=== PATIENT | female | born 1975 | race Caucasian/White ===

== ENCOUNTER → 2016-05-12 | Outpatient (CLI) | payer BC ==
[~2016-05-12] MED LIST: ACCUNEB 0.0.63 MG/3 INH; ADIPEX37.5 MG PO; ALBUTEROL0.09 MG/A2 INH; ANAPROX DS550 MG PO; ANTIBIOTIC PO; ANTIVERT/2525 M1 PO; ANTIVERT25 MG; ANTIVERT25 MG PO; APAP/HYDROCODON1 T46 PO; BACTRIM DS 8001 TAB PO; BENTYL10 MG PO; CLARITIN10 MG PO; DAYPRO600 M1 PO; DOXYCYCLINE100 M2 PO; DOXYCYCLINE100 M3 PO; FIORICET 325 MG1 TAB PO; FLEXERIL10 MG PO; HYCODAN/HYDROMET5 ML PO; HYDROCODONE BIT1 T11 PO; IBU-8800 MG PO; KENALOG0.5% TP; LEVOFLOXACIN500 MG PO; LEVOTHYROXIN0.125 MG PO; MECLIZINE HCL25 M1 PO; MOTRIN CHI100 MG/51 PO; MOTRIN800 MG PO; Motrin,Rufen800 MG PO; NORCO 325 MG-51 TAB PO; PERCOCET 325 MG1 TA2 PO; PERCOCET 325 MG1 TAB PO; PHENERGAN W/ DE30 ML PO; PHENERGAN25 M1 PO; PREDNICOT10 MG PO; PREVACID30 M1 PO; PROVENTIL0.09 MG/A1 INH; PROVENTIL0.09 MG/AC IH; REGLAN10 MG PO; REGLAN5 MG PO; RELPAX20 MG; ROBAXIN750 MG PO; SYMBICORT1 AE1 IH; SYNTHROID0.125 MG PO; TYLENOL W/ CODEI5 ML PO; URIBEL CAPSULE1 EACH PO; VICODIN ES 7501 TAB; VISTARIL25 M1 PO; VITAMIN D50000 I2 PO; ZANTAC 300300 MG PO; ZITHROMAX Z PA250 MG PO; ZOFRAN4 MG PO; ZYRTEC10 MG PO; Zofran4 MG PO
[2016-05-12 13:27] LABS: BASO # 0.1 10*3/uL (0.0-0.1); BASO % 0.8 % (0.0-1.0); EOS % 0.5 % (1.0-4.0); HEMATOCRIT 44.5 % (37.0-47.0); HEMOGLOBIN 15.2 g/dl (12.0-16.0); LYMPH # 2.2 10*3/uL (1.3-4.4); LYMPH % 36.6 % (27.0-41.0); MEAN CELL VOLUME 85.2 fl (81.0-99.0); MEAN CORPUSCULAR HGB 29.1 pg (27.0-31.0); MEAN CORPUSCULAR HGB CONC 34.2 g/dl (33.0-37.0); MEAN PLATELET VOLUME 11.2 fl (9.6-12.3); MONO # 0.4 10*3/uL (0.1-1.0); NEUT # 3.3 10*3/uL (2.3-7.9); NEUT % 54.8 % (47.0-73.0); PLATELET COUNT AUTOMATED 339 10*3/uL (130-400); RED BLOOD COUNT 5.22 10*6/uL (4.10-5.10); RED CELL DISTRI WIDTH 13.2 % (0-14.5); WHITE BLOOD COUNT 6.1 10*3/uL (4.8-10.8)
[2016-05-12 13:34] LABS: BILIRUBIN NEGATIVE (NEGATIVE); BLOOD NEGATIVE (NEGATIVE); CLARITY SL CLOUDY (CLEAR); COLOR YELLOW (YELLOW); GLUCOSE NEGATIVE (NEGATIVE); KETONE NEGATIVE (NEGATIVE); LEUKO ESTERASE NEGATIVE (NEGATIVE); NITRITE NEGATIVE (NEGATIVE); PH 7.5 (5.0-9.0); PROTEIN NEGATIVE (NEGATIVE); UROBILINOGEN 0.2 E.U./dl (0.2-1.0)
[2016-05-12 14:04] LABS: ALBUMIN 3.7 gm/dl (3.1-4.5); ALKALINE PHOSPHATASE 151 U/L (45-117); BILIRUBIN, TOTAL 0.3 mg/dl (0.2-1.0); BUN 7 mg/dl (7-24); CARBON DIOXIDE 30 mmol/L (21-32); CHLORIDE 106 mmol/L (98-107); EST GLOM FILT AFRICAN AMERICAN > 60 ml/min; GLUCOSE 86 mg/dL (65-99); POTASSIUM 3.6 mmol/L (3.5-5.1); SGOT/AST 17 IU/L (3-35); SGPT/ALT 34 U/L (12-78); SODIUM 142 mmol/L (136-145); TOTAL PROTEIN 7.5 gm/dL (6.4-8.2)
[2016-05-12 14:05] LABS: BACTERIA 1+; BILIRUBIN, DIRECT 0.1 mg/dL (0.0-0.2); EPITHELIAL CELLS 0-2; THYROID STIM HORMONE (HS) 0.268 uIU/ml (0.358-4.75); WBC 0-2 wbc/hpf (0-5)
[2016-05-13 08:23] LABS: COMPLEMENT C4 001834 41 mg/dL (14-44)
== END | disposition home or self-care (01) ==
LOC: LAB 12:55
PROVIDERS: Nurse Practitioner Family
DX: C73 Malignant neoplasm of thyroid gland (principal); E89.0 Postprocedural hypothyroidism; M35.9 Systemic involvement of connective tissue, unspecified; R74.8 Abnormal levels of other serum enzymes

== ENCOUNTER → 2016-05-24 | Outpatient (CLI) | payer BC ==
[2016-05-25 04:07] LABS: ALKALINE PHOSPHATASE, SERUM 119 IU/L (39-117)
[2016-05-27 15:08] LABS: BONE FRACTION 47 % (14-68); INTESTINAL FRACTION 1 % (0-18); LIVER FRACTION 52 % (18-85)
== END | disposition home or self-care (01) ==
LOC: LAB 05-14 17:51
PROVIDERS: Nurse Practitioner Family
DX: J18.9 Pneumonia, unspecified organism (principal); R74.8 Abnormal levels of other serum enzymes

== ENCOUNTER → 2016-12-26 | Outpatient (CLI) | payer BC | END | disposition home or self-care (01) | LOC: LAB 13:05 | DX: C73 Malignant neoplasm of thyroid gland (principal); E89.0 Postprocedural hypothyroidism ==

== ENCOUNTER 2017-01-26 15:03 | Emergency (ER) | payer BC ==
[~2017-01-26] VITALS: Ht 157.4 cm; Wt 88.5 kg
[2017-01-26 15:27] VITALS: BP 120/80
[2017-01-26] MEDS ORDERED: ZITHROMAX250 MG PO (16:16)
[2017-01-26] MEDS ORDERED: PROAIR HFA8.5 GM INH (16:17)
[2017-01-26] MEDS ORDERED: MEDROL DOSEPAK4 MG PO (16:17)
== END 2017-01-26 16:22 | disposition home or self-care (01) ==
LOC: ED 15:03
DX: J40 Bronchitis, not specified as acute or chronic (principal); Z88.0 Allergy status to penicillin

== ENCOUNTER → 2017-05-26 | Outpatient (CLI) | payer BC ==
[~2017-05-26] MED LIST changes: +MEDROL DOSEPAK4 MG PO; +PROAIR HFA8.5 GM INH; +ZITHROMAX250 MG PO
== END | disposition home or self-care (01) ==
LOC: RAD 15:44
DX: J06.9 Acute upper respiratory infection, unspecified (principal); R05 Cough; R09.89 Other specified symptoms and signs involving the circulatory and respiratory systems; R50.9 Fever, unspecified

== ENCOUNTER → 2017-06-17 | Outpatient (CLI) | payer BC | END | disposition home or self-care (01) | LOC: US 14:53 | DX: C73 Malignant neoplasm of thyroid gland (principal); E89.0 Postprocedural hypothyroidism ==

== ENCOUNTER → 2017-08-04 | Outpatient (CLI) | payer BC | END | disposition home or self-care (01) | LOC: US 14:30 | DX: M79.605 Pain in left leg (principal) ==

== ENCOUNTER → 2018-05-25 | Outpatient (CLI) | payer BC ==
[2018-05-25 17:04] LABS: BASO # 0.1 10*3/uL (0.0-0.1); BASO % 0.7 % (0.0-1.0); EOS # 0.1 10*3/uL (0.0-0.4); EOS % 0.6 % (1.0-4.0); HEMATOCRIT 45.8 % (37.0-47.0); HEMOGLOBIN 15.4 g/dl (12.0-16.0); LYMPH # 2.5 10*3/uL (1.3-4.4); LYMPH % 30.6 % (27.0-41.0); MEAN CELL VOLUME 85.9 fl (81.0-99.0); MEAN CORPUSCULAR HGB 28.9 pg (27.0-31.0); MEAN CORPUSCULAR HGB CONC 33.6 g/dl (33.0-37.0); MONO # 0.5 10*3/uL (0.1-1.0); MONO % 5.7 % (3.0-9.0); NEUT % 62.2 % (47.0-73.0); PLATELET COUNT AUTOMATED 329 10*3/uL (130-400); RED BLOOD COUNT 5.33 10*6/uL (4.10-5.10); RED CELL DISTRI WIDTH 13.1 % (0-14.5); WHITE BLOOD COUNT 8.1 10*3/uL (4.8-10.8)
[2018-05-25 17:25] LABS: ALBUMIN 3.8 gm/dl (3.1-4.5); ALKALINE PHOSPHATASE 110 U/L (45-117); BUN 14 mg/dl (7-24); CHLORIDE 105 mmol/L (98-107); CREATININE 0.84 mg/dL (0.55-1.02); POTASSIUM 3.8 mmol/L (3.5-5.1); SGOT/AST 16 IU/L (3-35); SGPT/ALT 23 U/L (12-78); SODIUM 140 mmol/L (136-145); TOTAL PROTEIN 8.1 gm/dL (6.4-8.2)
== END | disposition home or self-care (01) ==
LOC: LAB 16:43
PROVIDERS: Internal Medicine Gastroenterology
DX: K74.5 Biliary cirrhosis, unspecified (principal)

== ENCOUNTER → 2018-09-07 | Outpatient (CLI) | payer BC | END | disposition home or self-care (01) | LOC: RAD 17:28 | DX: J18.9 Pneumonia, unspecified organism (principal) ==

== ENCOUNTER → 2018-09-14 | Outpatient (CLI) | payer BC | END | disposition home or self-care (01) | LOC: MAMMO 09-01 07:20 | DX: Z12.31 Encounter for screening mammogram for malignant neoplasm of breast (principal) ==

== ENCOUNTER 2019-03-07 16:49 | Inpatient (IN) | payer BC ==
[~2019-03-07] VITALS: Ht 157.5 cm; Wt 96.2 kg
--- NOTE | ~2019-03-07 | CON ---
[place], [place] REPORT OF CONSULTATION NAME: NICOLE DENNIS UNIT #: [id number] ROOM: 503 DOCTOR: WES LEGER MD BIRTHDATE: [birth year] DOS: 03/09/2019 GASTROENDOSCOPIC REPORT HISTORY OF PRESENT ILLNESS: A 43-year-old patient was presented with a chief complaint of abdominal pain, epigastric pain, and lower abdomen pain. CT scan of the abdomen and pelvis was obtained and nonobstructive bilateral renal calculi was seen. Small amount of density in the anus was noticed. Interval cholecystectomy was seen. Gastritis was suspected. Hiatal hernia noticed. CBC differential, H and H 13 and 42. Comprehensive metabolic panel: GFR greater than 60. Electrolytes, labs and records were noticed. PAST MEDICAL HISTORY: Associated with connective tissue disease, cholelithiasis, cephalalgia obesity, primary biliary cirrhosis, and nonalcoholic fatty liver. PAST SURGICAL HISTORY: , podiatry, cholecystectomy, and hand operation. SOCIAL HISTORY: Nonsmoker, social alcohol consumer. FAMILY HISTORY: Noncontributory. ALLERGIES: TO TAPE, PENICILLIN, AND REGLAN. MEDICATIONS: List has been reviewed. REVIEW OF SYSTEMS: HEENT: Denies double vision or blurred vision. RESPIRATORY: Denies shortness of breath. CARDIOVASCULAR: Denies chest pain. DIGESTIVE SYSTEM: Abdominal pain. PHYSICAL EXAMINATION: VITAL SIGNS: Stable. HEENT: Benign. NECK: Supple, no thyromegaly, no cervical lymphadenopathy. CHEST: Symmetric anatomy, equal expansion. No wheeze, no rhonchi. HEART: Normal sinus rhythm, no gallop, no murmur. ABDOMEN: Obese, soft. No hepato-organomegaly. Bowel sounds present. EXTREMITIES: No cyanosis, no pedal edema. NEUROLOGIC: Alert, oriented to time, place, and person. IMPRESSION: Abdominal pain, undergoing investigation. Other issues of primary biliary cirrhosis all recognized. Mixed connective tissue disease recognized. PLAN AND DISCUSSION: At the present time EGD and colonoscopy. [place], [place] REPORT OF CONSULTATION NAME: NICOLE DENNIS UNIT #: [id number] ROOM: 503 DOCTOR: WES LEGER MD BIRTHDATE: [birth year] WES LEGER MD CM:CONSTR:REPORT OF CONSULTATION 1650 03/09/19 2241 interface
--- NOTE | ~2019-03-07 | POSTOPNOTE ---
[place], [place] POSTOPERATIVE PROGRESS NOTE NAME: NIOCLE DENNIS UNIT #: [id number] ROOM: [facility] DOCTOR: WES LEGER MD BIRTHDATE: [birth year] DATE: 03/09/19 GI NOTE PREOPERATIVE DIAGNOSIS: EPIGASTRIC ABDOMINAL PAIN, NONSPECIFIC, NONOBSTRUCTIVE BILATERAL RENAL CALCULI, DIVERTICULOSIS WITHOUT DIVERTICULITIS, GASTRITIS HIATAL HERNIA POSTOP UPPER GI PROC/FINDINGS: UPPER GI PROCEDURE/SURGERY: ESOPHAGASTRODUODENOSCOPY, GASTRIC BIOPSY UPPER GI FINDINGS: GASTRITIS, VERY SMALL HIATAL HERNIA POSTOP LOWER GI PROC/FINDINGS: LOWER GI PROCEDURE/SURGERY: COLONOSCOPY, PLUS BIOPSY LOWER GI FINDINGS: MILD DIVERTICULOSIS, RETAINED LIQUID STOOL WES LEGER MD CM:POSTOPN 1523 1523 WES LEGER MD 03/10/19 1526 SOBIA DARDEN MIS.R
--- NOTE | ~2019-03-07 | O ---
[place], [place] OPERATIVE NOTE NAME: NICOLE DENNIS UNIT #: [id number] ROOM: 503 DOCTOR: WES LEGER MD BIRTHDATE: [birth year] DOS: 03/09/2019 GASTROENDOSCOPIC REPORT INDICATIONS: The patient has presented with epigastric abdominal pain, nonspecific. Labs and records have been reviewed her CT scan of the abdomen and pelvis was reviewed. She is having nonobstructive bilateral renal calculi and she has some diverticulosis without diverticulitis. No acute appendicitis, hepatic steatosis, gastritis with small hiatal hernia on CT scan. PROCEDURE: Today's procedure part of investigation is panendoscopy and colonoscopy. PREMEDICATION: Propofol. SCOPE: Olympus forward-viewing gastroscope Q10 video. REPORT: After putting the patient in left lateral position and application of lubricant to the scope, the scope was introduced. Thereafter, under direct visualization, advanced through the length of esophagus without difficulty. Diffuse gastritis was noticed very small hiatal hernia was seen. Duodenal bulb, second and third part within normal limit. Antral biopsy obtained. GI reflection of the scope reveals cardia to be benign. Air was suctioned out. The patient was extubated, tolerated the procedure well. IMPRESSION: Gastritis, very small hiatal hernia. PLAN AND DISCUSSION: Protonix 40 mg day. Furthermore, we are going to proceed with colonoscopy. PROCEDURE #2 INDICATIONS: The patient is a 43-year-old patient who has presented with nonspecific abdominal pain, undergoing investigation. PROCEDURE: Today's procedure part of investigation is colonoscopy plus biopsy. PREMEDICATION: Propofol. SCOPE: Olympus forward-viewing colonoscope 10L video. DESCRIPTION OF PROCEDURE: After putting the patient in left lateral position and application of lubricant to the scope, the scope was introduced. Thereafter, under direct visualization, advanced through the length of colon without difficulty. Base of the cecum explored, appendiceal orifice identified. Residual liquid stool throughout the entire length of colon was encountered. Mild diverticulosis seen and random biopsy of colon was obtained to assure there is no subcutaneous pathology. The patient extubated, tolerated the procedure well. [place], [place] OPERATIVE NOTE NAME: NICOLE DENNIS UNIT #: [id number] ROOM: 503 DOCTOR: WES LEGER MD BIRTHDATE: [birth year] IMPRESSION: A mild diverticulosis, retained liquid stool. PLAN AND DISCUSSION: We are noticing that she has had a spike of AST and ALT of 200 and 300+ respectively with alkaline phosphatase of 137. Bilirubin has been normal, however. I remain concerned as far as the source of spiked LFTs. Patient 10 years ago had cholecystectomy. I am going to follow up on LFTs again tomorrow with amylase, lipase to assure there is no evidence of choledocholithiasis and work in progress. We understand that she has a history of primary biliary cirrhosis. However, the workup is going to continue, also she has renal calculi. WES LEGER MD CM:ARIANNAECORD:OPERATIVE NOTE 1719 T: WES LEGER MD 03/16/19 0916 SOBIA DARDEN MIS.LLR
[~2019-03-07 16:49] MED LIST changes: -LEVOTHYROXIN0.125 MG PO; +LEVOTHYROXINE100 MC1 PO
[2019-03-07 16:52] VITALS: BP 131/86
[2019-03-07 17:33] LABS: BILIRUBIN NEGATIVE (NEGATIVE); BLOOD 1+ (NEGATIVE); CLARITY CLOUDY (CLEAR); COLOR YELLOW (YELLOW); GLUCOSE NEGATIVE (NEGATIVE); KETONE NEGATIVE (NEGATIVE); LEUKO ESTERASE 1+ (NEGATIVE); NITRITE NEGATIVE (NEGATIVE); UROBILINOGEN 0.2 E.U./dl (0.2-1.0)
[2019-03-07 17:41] LABS: WBC TNTC wbc/hpf (0-5)
[2019-03-07 17:42] LABS: BACTERIA 1+; EPITHELIAL CELLS 0-2
[2019-03-07 18:11] LABS: BASO # 0.1 10*3/uL (0.0-0.1); EOS # 0.2 10*3/uL (0.0-0.4); EOS % 2.2 % (1.0-4.0); HEMATOCRIT 42.2 % (37.0-47.0); HEMOGLOBIN 13.6 g/dl (12.0-16.0); LYMPH # 2.4 10*3/uL (1.3-4.4); LYMPH % 29.6 % (27.0-41.0); MEAN CELL VOLUME 88.5 fl (81.0-99.0); MEAN CORPUSCULAR HGB 28.5 pg (27.0-31.0); MEAN CORPUSCULAR HGB CONC 32.2 g/dl (33.0-37.0); MONO # 0.7 10*3/uL (0.1-1.0); MONO % 8.2 % (3.0-9.0); NEUT # 4.7 10*3/uL (2.3-7.9); NEUT % 58.6 % (47.0-73.0); PLATELET COUNT AUTOMATED 347 10*3/uL (130-400); RED BLOOD COUNT 4.77 10*6/uL (4.10-5.10); RED CELL DISTRI WIDTH 13.1 % (0-14.5); WHITE BLOOD COUNT 8.1 10*3/uL (4.8-10.8)
--- NOTE | 2019-03-07 18:24 | NUR ---
MORPHINE AND TORADOL EFFECTIVE FOR A BRIEF PERIOD. PT IS COMPLAINING OF PAIN AGAIN TO ABD.
--- NOTE | 2019-03-07 18:30 | NUR ---
PT IS COMPLAINING OF SEVERE LQU ABD PAIN (IT HAS MOVED FROM PELVIC AREA), PT IS FLOPPING AROUND IN BED, PANTING, SWEATING. A CLAUDIA NOTIFIED.
[2019-03-07 18:31] VITALS: BP 110/73
[2019-03-07 19:01] LABS: ALBUMIN 3.3 gm/dl (3.1-4.5); ALKALINE PHOSPHATASE 115 U/L (45-117); BUN 15 mg/dl (7-24); CHLORIDE 108 mmol/L (98-107); CREATININE 0.86 mg/dL (0.55-1.02); POTASSIUM 4.3 mmol/L (3.5-5.1); SGOT/AST 39 IU/L (3-35); SGPT/ALT 70 U/L (12-78); SODIUM 142 mmol/L (136-145); TOTAL PROTEIN 6.7 gm/dL (6.4-8.2)
--- NOTE | 2019-03-07 19:21 | NUR ---
PATIENT HAS LEFT THE FLOOR TO GO TO CT SCAN AT THIS TIME. PATIENT IS STABLE
--- NOTE | 2019-03-07 19:36 | NUR ---
PATIENT HAS RETURNED AT THIS TIME FROM CT SCAN. PATIENT GIVEN WARM BLANKET
[2019-03-07 23:00] VITALS: BP 123/81
--- NOTE | 2019-03-07 23:00 | NUR ---
Time: 2299 A 43 year old FEMALE admitted to 5E under services of DR. SANTIAGO PACHECO,YESENIA. Pt. arrived via bed from ER. Chief complaint: ABDOMINAL PAIN, DYSURIA. BRENNA ADAME
--- NOTE | 2019-03-07 23:53 | NUR ---
PATIENT ONLY ABLE TO STATE SOME MEDICATIONS. WILL CALL PHARMACY IN THE MORNING
[2019-03-07] MEDS ORDERED: VITAMIN D5000 UNIT PO (23:55)
[2019-03-07] MEDS ORDERED: OMEPRAZOLE40 MG PO (23:56)
[2019-03-07] MEDS ORDERED: MIXED AMPHETAMI30 MG PO (23:56)
[2019-03-07] MEDS ORDERED: VITAMIN E400 UNI2 PO (23:56)
[2019-03-07] MEDS ORDERED: Fioricet 325 MG1 TAB PO (23:58)
[2019-03-07] MEDS ORDERED: SUMATRIPTAN SU100 M1 PO (23:58)
[2019-03-08] VITALS: BP 123/81
--- NOTE | 2019-03-08 00:06 | NUR ---
MED REC REVIEWED WITH PATIENT, REVIEWED MEDICATIONS PATIENT WAS FOR SURE THAT SHE TOOK. STATED TO PATIENT WE WOULD HAVE TO CALL FOR THE REST OF THEM IN THE MORNING.
--- NOTE | 2019-03-08 05:58 | NUR ---
PRN ZOFRAN AND NORCO GIVEN FOR PT COMPLAINTS OF NAUSEA AND PAIN IN THE ABDOMEN RATING IT 6/10. CALL LIGHT WITHIN REACH, WILL MONITOR
[2019-03-08 06:48] LABS: BASO % 0.7 % (0.0-1.0); EOS # 0.1 10*3/uL (0.0-0.4); EOS % 1.5 % (1.0-4.0); HEMATOCRIT 40.1 % (37.0-47.0); LYMPH # 1.7 10*3/uL (1.3-4.4); LYMPH % 28.5 % (27.0-41.0); MEAN CELL VOLUME 88.5 fl (81.0-99.0); MEAN CORPUSCULAR HGB 28.7 pg (27.0-31.0); MEAN CORPUSCULAR HGB CONC 32.4 g/dl (33.0-37.0); MEAN PLATELET VOLUME 11.1 fl (9.6-12.3); MONO # 0.5 10*3/uL (0.1-1.0); MONO % 8.4 % (3.0-9.0); NEUT # 3.7 10*3/uL (2.3-7.9); NEUT % 60.4 % (47.0-73.0); PLATELET COUNT AUTOMATED 322 10*3/uL (130-400); RED BLOOD COUNT 4.53 10*6/uL (4.10-5.10); RED CELL DISTRI WIDTH 13.1 % (0-14.5); WHITE BLOOD COUNT 6.1 10*3/uL (4.8-10.8)
[2019-03-08 07:26] LABS: CHLORIDE 110 mmol/L (98-107); POTASSIUM 3.6 mmol/L (3.5-5.1); SODIUM 139 mmol/L (136-145)
[2019-03-08 07:38] LABS: ALKALINE PHOSPHATASE 133 U/L (45-117); BUN 10 mg/dl (7-24); CREATININE 0.64 mg/dL (0.55-1.02); PHOSPHOROUS 3.8 mg/dL (2.5-4.9); SGOT/AST 510 IU/L (3-35); SGPT/ALT 396 U/L (12-78); TOTAL PROTEIN 6.4 gm/dL (6.4-8.2)
[2019-03-08 08:00] VITALS: BP 109/72
[2019-03-08] MEDS ORDERED: URIBEL CAPSULE1 EACH PO (09:12)
[2019-03-08] MEDS ORDERED: CLARITIN10 MG PO (09:12)
[2019-03-08] MEDS ORDERED: VENT7GM INH (09:16)
--- NOTE | 2019-03-08 10:30 | NUR ---
Appeals Assistant in to talk to patient. Patient states lives at home with her and 2 daughters. There are 16 steps in the home. Physician: Dr. Martinez / Dr. Seth Vaca [facility]: [facility] Home health services: none Patient's level of ADLs: INDEPENDENT Patient has working utilities: yes DME: none Follow-up physician's appointment after d/c: she prefers to make her own follow up appt after discharge Does patient want to access PORTAL?: no Discharge plan discussed with patient. She lives at home with her and 2 daughters. She is independent in her ADLs and ambulation. Discussed home health care services and she denies any home needs at this time. When medically stable she will be discharged to home. Her daughter or her will provide transportation on discharge. ROCIO GREGORY
--- NOTE | 2019-03-08 11:55 | NUR ---
LEFT A MESSAGE ON DR. LEGER CELL PHONE OF CONSULT.
[2019-03-08 12:00] VITALS: BP 110/67
[2019-03-08 16:00] VITALS: BP 137/88
[2019-03-08 20:00] VITALS: BP 128/84
[2019-03-09] VITALS (7 sets, daily range): BP systolic 98–128; BP diastolic 63–87
[2019-03-09 09:26] LABS: BASO # 0.1 10*3/uL (0.0-0.1); BASO % 1.1 % (0.0-1.0); EOS # 0.2 10*3/uL (0.0-0.4); EOS % 2.7 % (1.0-4.0); HEMATOCRIT 40.7 % (37.0-47.0); HEMOGLOBIN 13.3 g/dl (12.0-16.0); LYMPH # 1.8 10*3/uL (1.3-4.4); LYMPH % 28.1 % (27.0-41.0); MEAN CELL VOLUME 89.1 fl (81.0-99.0); MEAN CORPUSCULAR HGB 29.1 pg (27.0-31.0); MEAN CORPUSCULAR HGB CONC 32.7 g/dl (33.0-37.0); MEAN PLATELET VOLUME 10.6 fl (9.6-12.3); MONO # 0.4 10*3/uL (0.1-1.0); MONO % 6.9 % (3.0-9.0); NEUT # 3.8 10*3/uL (2.3-7.9); NEUT % 60.6 % (47.0-73.0); PLATELET COUNT AUTOMATED 310 10*3/uL (130-400); RED BLOOD COUNT 4.57 10*6/uL (4.10-5.10); RED CELL DISTRI WIDTH 13.2 % (0-14.5); WHITE BLOOD COUNT 6.3 10*3/uL (4.8-10.8)
--- NOTE | 2019-03-09 09:30 | NUR ---
Colorer Hides And Skins in to see patient. No new needs or request at this time. She denies any home needs. When medically stable she will be discharged to home. Awaiting Dr. Heath consult for elevated liver enzymes. Positive UA. On Levaquin and Flagyl.
[2019-03-09 09:55] LABS: ALKALINE PHOSPHATASE 137 U/L (45-117); BUN 10 mg/dl (7-24); CHLORIDE 109 mmol/L (98-107); CREATININE 0.69 mg/dL (0.55-1.02); POTASSIUM 3.6 mmol/L (3.5-5.1); SGOT/AST 224 IU/L (3-35); SGPT/ALT 313 U/L (12-78); SODIUM 140 mmol/L (136-145); TOTAL PROTEIN 6.7 gm/dL (6.4-8.2)
--- NOTE | 2019-03-09 15:12 | NUR ---
PATIENT BEING TAKEN TO SURGERY.
--- NOTE | 2019-03-09 21:46 | NUR ---
MEDICATED WITH NORCO PER DRS ORDERS FOR COMPLAINTS OF PAIN TO THE LOWER ABDOMEN AND BACK AREA. RN WILL MONITOR FOR RELIEF
[2019-03-10] VITALS: BP 116/69
--- NOTE | 2019-03-10 05:26 | NUR ---
PATIENT STATES SHE DOES NOT CHECK HER BLOOD SUGARS AT HOME AND DOESNT TAKE ANY MEDICATIONS FOR IT AT HOME AND WAS CONCERNED FOR RATIONALE BEHIND DOING THEM HERE, RN INFORMED PATIENT OF REASON. AND PATIENT AGREED TO LET RN CHECK BLOOD SUGAR.
[2019-03-10 06:27] LABS: BASO # 0.1 10*3/uL (0.0-0.1); BASO % 0.8 % (0.0-1.0); EOS # 0.2 10*3/uL (0.0-0.4); HEMOGLOBIN 13.3 g/dl (12.0-16.0); LYMPH # 2.1 10*3/uL (1.3-4.4); MEAN CORPUSCULAR HGB 28.5 pg (27.0-31.0); MEAN CORPUSCULAR HGB CONC 32.4 g/dl (33.0-37.0); MEAN PLATELET VOLUME 10.8 fl (9.6-12.3); MONO # 0.5 10*3/uL (0.1-1.0); MONO % 8.9 % (3.0-9.0); NEUT # 3.1 10*3/uL (2.3-7.9); NEUT % 51.6 % (47.0-73.0); PLATELET COUNT AUTOMATED 321 10*3/uL (130-400); RED BLOOD COUNT 4.66 10*6/uL (4.10-5.10); RED CELL DISTRI WIDTH 13.1 % (0-14.5); WHITE BLOOD COUNT 6.1 10*3/uL (4.8-10.8)
[2019-03-10 06:35] LABS: ALBUMIN 2.9 gm/dl (3.1-4.5); ALKALINE PHOSPHATASE 135 U/L (45-117); BUN 8 mg/dl (7-24); CHLORIDE 107 mmol/L (98-107); CREATININE 0.85 mg/dL (0.55-1.02); POTASSIUM 3.3 mmol/L (3.5-5.1); SGOT/AST 95 IU/L (3-35); SGPT/ALT 234 U/L (12-78); SODIUM 140 mmol/L (136-145); TOTAL PROTEIN 6.5 gm/dL (6.4-8.2)
[2019-03-10 06:37] LABS: BILIRUBIN, DIRECT < 0.1 mg/dL (0.0-0.2)
[2019-03-10 07:08] LABS: HEPATITIS B SURFACE AG Negative (Negative); HEPATITIS C VIRUS ANTIBODY <0.1 s/co (0.0-0.9)
[2019-03-10 08:00] VITALS: BP 99/62
--- NOTE | 2019-03-10 10:00 | NUR ---
Freight Representative in to see patient. No new needs or request at this time. She denies any home needs. When medically stable she will be discharged to home. Discussed discharge planning with Dr. Vaca. Discussed colonoscopy yesterday by Dr. Heath showed diverticulosis. Plan is for patient to be discharged today if medically stable.
[2019-03-10] MEDS ORDERED: FLAGYL500 MG PO (13:40)
[2019-03-10] MEDS ORDERED: LEVAQUIN750 M1 PO (13:40)
--- NOTE | 2019-03-10 14:20 | NUR ---
Discharge instructions reviewed with patient/family. Patient receptive and verbalizes understanding. Follow-up care arranged. Written instructions given to patient/family. KORINA LITTLE
--- NOTE | 2019-03-10 14:36 | NUR ---
PT DISCHARGED AT THIS TIME WITH TO HOME.
== END 2019-03-10 14:36 | disposition home or self-care (01) | DRG 690 ==
LOC: ED 16:49 → 5E 20:41 → EDHOLD 20:41 → 5E 22:07
PROVIDERS: Emergency Medicine; Internal Medicine Gastroenterology; Physician Assistant; Student in an Organized Health Care Education/Training Program; ADMIT Internal Medicine
PROC: 0DB68ZX Excision of Stomach, Via Natural or Artificial Opening Endoscopic, Diagnostic (ICD-10-PCS; principal; 2019-03-09)
PROC: 0DBE8ZX Excision of Large Intestine, Via Natural or Artificial Opening Endoscopic, Diagnostic (ICD-10-PCS; principal; 2019-03-09)
DX: N30.01 Acute cystitis with hematuria (principal); K29.70 Gastritis, unspecified, without bleeding; N20.0 Calculus of kidney; R73.03 Prediabetes; K74.3 Primary biliary cirrhosis; K76.0 Fatty (change of) liver, not elsewhere classified; K44.9 Diaphragmatic hernia without obstruction or gangrene; M35.9 Systemic involvement of connective tissue, unspecified; K57.30 Diverticulosis of large intestine without perforation or abscess without bleeding; E66.9 Obesity, unspecified; K21.9 Gastro-esophageal reflux disease without esophagitis; R74.0 Nonspecific elevation of levels of transaminase and lactic acid dehydrogenase [LDH]; Z90.49 Acquired absence of other specified parts of digestive tract; Z90.710 Acquired absence of both cervix and uterus; Z98.891 History of uterine scar from previous surgery; Z98.51 Tubal ligation status; Z88.0 Allergy status to penicillin; Z88.8 Allergy status to other drugs, medicaments and biological substances; Z83.3 Family history of diabetes mellitus; Z85.850 Personal history of malignant neoplasm of thyroid; Z79.899 Other long term (current) drug therapy; Z68.38 Body mass index [BMI] 38.0-38.9, adult

== ENCOUNTER → 2019-04-05 | Outpatient (CLI) | payer BC ==
[~2019-04-05] MED LIST changes: +FLAGYL500 MG PO; +Fioricet 325 MG1 TAB PO; +LEVAQUIN750 M1 PO; +MIXED AMPHETAMI30 MG PO; +OMEPRAZOLE40 MG PO; +SUMATRIPTAN SU100 M1 PO; +VENT7GM INH; +VITAMIN D5000 UNIT PO; +VITAMIN E400 UNI2 PO
[2019-04-05 17:38] LABS: BUN 8 mg/dl (7-24); CHLORIDE 107 mmol/L (98-107); POTASSIUM 3.2 mmol/L (3.5-5.1); SODIUM 138 mmol/L (136-145)
== END | disposition home or self-care (01) ==
LOC: LAB 16:48
PROVIDERS: Family Medicine
DX: M35.9 Systemic involvement of connective tissue, unspecified (principal)

== ENCOUNTER → 2019-04-11 | Outpatient (CLI) | payer BC ==
[2019-04-11 09:16] LABS: BASO # 0.1 10*3/uL (0.0-0.1); BASO % 1.3 % (0.0-1.0); EOS # 0.1 10*3/uL (0.0-0.4); EOS % 1.8 % (1.0-4.0); HEMATOCRIT 44.3 % (37.0-47.0); HEMOGLOBIN 14.3 g/dl (12.0-16.0); LYMPH # 2.2 10*3/uL (1.3-4.4); LYMPH % 35.6 % (27.0-41.0); MEAN CELL VOLUME 88.1 fl (81.0-99.0); MEAN CORPUSCULAR HGB 28.4 pg (27.0-31.0); MEAN CORPUSCULAR HGB CONC 32.3 g/dl (33.0-37.0); MONO # 0.6 10*3/uL (0.1-1.0); MONO % 9.3 % (3.0-9.0); NEUT # 3.2 10*3/uL (2.3-7.9); NEUT % 51.7 % (47.0-73.0); PLATELET COUNT AUTOMATED 300 10*3/uL (130-400); RED BLOOD COUNT 5.03 10*6/uL (4.10-5.10); RED CELL DISTRI WIDTH 13.3 % (0-14.5); WHITE BLOOD COUNT 6.2 10*3/uL (4.8-10.8)
[2019-04-11 09:45] LABS: ALBUMIN 3.4 gm/dl (3.1-4.5); BUN 11 mg/dl (7-24); CHLORIDE 107 mmol/L (98-107); POTASSIUM 3.9 mmol/L (3.5-5.1); SODIUM 141 mmol/L (136-145)
[2019-04-11 09:56] LABS: ALKALINE PHOSPHATASE 106 U/L (45-117); CREATININE 0.82 mg/dL (0.55-1.02); FREE T4 0.97 ng/dl (0.76-1.46); SGOT/AST 36 IU/L (3-35); SGPT/ALT 40 U/L (12-78); TOTAL PROTEIN 7.2 gm/dL (6.4-8.2)
== END | disposition home or self-care (01) ==
LOC: LAB 08:49
PROVIDERS: Internal Medicine
DX: E03.9 Hypothyroidism, unspecified (principal); R74.8 Abnormal levels of other serum enzymes; M35.9 Systemic involvement of connective tissue, unspecified

== ENCOUNTER 2019-07-27 15:21 | Emergency (ER) | payer BC ==
[~2019-07-27] VITALS: Ht 157.4 cm; Wt 98.4 kg
[2019-07-27 15:28] VITALS: BP 117/73
[2019-07-27 17:34] LABS: BILIRUBIN NEGATIVE (NEGATIVE); BLOOD NEGATIVE (NEGATIVE); CLARITY CLEAR (CLEAR); COLOR YELLOW (YELLOW); GLUCOSE NEGATIVE (NEGATIVE); KETONE NEGATIVE (NEGATIVE); NITRITE NEGATIVE (NEGATIVE); PH 7.5 (5.0-9.0); UROBILINOGEN 0.2 E.U./dl (0.2-1.0)
[2019-07-27 17:35] LABS: LEUKO ESTERASE NEGATIVE (NEGATIVE)
[2019-07-27 17:41] LABS: BACTERIA TRACE; EPITHELIAL CELLS 0-2
[2019-07-27 18:31] LABS: BASO % 0.6 % (0.0-1.0); EOS % 0.1 % (1.0-4.0); HEMATOCRIT 44.5 % (37.0-47.0); HEMOGLOBIN 14.6 g/dl (12.0-16.0); LYMPH % 14.6 % (27.0-41.0); MEAN CELL VOLUME 85.7 fl (81.0-99.0); MEAN CORPUSCULAR HGB 28.1 pg (27.0-31.0); MEAN CORPUSCULAR HGB CONC 32.8 g/dl (33.0-37.0); MONO # 0.4 10*3/uL (0.1-1.0); MONO % 6.3 % (3.0-9.0); NEUT # 5.5 10*3/uL (2.3-7.9); NEUT % 78.3 % (47.0-73.0); PLATELET COUNT AUTOMATED 299 10*3/uL (130-400); RED BLOOD COUNT 5.19 10*6/uL (4.10-5.10); RED CELL DISTRI WIDTH 13.2 % (0-14.5)
[2019-07-27 18:48] LABS: ALBUMIN 3.2 gm/dl (3.1-4.5); ALKALINE PHOSPHATASE 100 U/L (45-117); BUN 10 mg/dl (7-24); CHLORIDE 108 mmol/L (98-107); CREATININE 0.85 mg/dL (0.55-1.02); LIPASE 141 U/L (73-393); POTASSIUM 3.7 mmol/L (3.5-5.1); SGOT/AST 25 IU/L (3-35); SGPT/ALT 32 U/L (12-78); SODIUM 139 mmol/L (136-145); TOTAL PROTEIN 6.7 gm/dL (6.4-8.2)
[2019-07-27] MEDS ORDERED: ZOFRAN4 MG PO (19:12)
== END 2019-07-27 19:14 | disposition home or self-care (01) ==
LOC: ED 15:21
PROVIDERS: Physician Assistant
DX: K52.9 Noninfective gastroenteritis and colitis, unspecified (principal); Z88.0 Allergy status to penicillin; Z88.8 Allergy status to other drugs, medicaments and biological substances; Z79.899 Other long term (current) drug therapy

== ENCOUNTER → 2019-10-27 | Outpatient (CLI) | payer BC ==
[2019-10-27 11:22] LABS: BASO # 0.1 10*3/uL (0.0-0.1); BASO % 1.2 % (0.0-1.0); EOS # 0.1 10*3/uL (0.0-0.4); EOS % 1.6 % (1.0-4.0); HEMATOCRIT 42.5 % (37.0-47.0); LYMPH # 1.7 10*3/uL (1.3-4.4); LYMPH % 30.4 % (27.0-41.0); MEAN CELL VOLUME 85.9 fl (81.0-99.0); MEAN CORPUSCULAR HGB 28.7 pg (27.0-31.0); MEAN CORPUSCULAR HGB CONC 33.4 g/dl (33.0-37.0); MEAN PLATELET VOLUME 10.8 fl (9.6-12.3); MONO # 0.4 10*3/uL (0.1-1.0); MONO % 7.6 % (3.0-9.0); NEUT # 3.4 10*3/uL (2.3-7.9); NEUT % 58.8 % (47.0-73.0); PLATELET COUNT AUTOMATED 290 10*3/uL (130-400); RED BLOOD COUNT 4.95 10*6/uL (4.10-5.10); WHITE BLOOD COUNT 5.7 10*3/uL (4.8-10.8)
[2019-10-27 11:48] LABS: ALBUMIN 3.6 gm/dl (3.1-4.5); ALKALINE PHOSPHATASE 96 U/L (45-117); BUN 12 mg/dl (7-24); CHLORIDE 111 mmol/L (98-107); CREATININE 0.74 mg/dL (0.55-1.02); IRON 70 ug/dL (50-170); POTASSIUM 3.7 mmol/L (3.5-5.1); SGOT/AST 15 IU/L (3-35); SGPT/ALT 27 U/L (12-78); SODIUM 142 mmol/L (136-145); TOTAL IRON BINDING CAPACITY 299 ug/dl (250-450); TOTAL PROTEIN 7.4 gm/dL (6.4-8.2)
[2019-10-27 12:22] LABS: FERRITIN 51.2 ng/mL (10.0-291.0); VITAMIN D, 25-HYDROXY 54.5 ng/mL (30-100)
== END | disposition home or self-care (01) ==
LOC: LAB 10:59
PROVIDERS: Nurse Practitioner Adult Health
DX: K21.9 Gastro-esophageal reflux disease without esophagitis (principal); E66.9 Obesity, unspecified; E89.0 Postprocedural hypothyroidism; Z68.39 Body mass index [BMI] 39.0-39.9, adult

== ENCOUNTER → 2019-11-21 | Outpatient (CLI) | payer BC | END | disposition home or self-care (01) | LOC: RAD 20:36 → LAB 20:36 | DX: K21.9 Gastro-esophageal reflux disease without esophagitis (principal); E89.0 Postprocedural hypothyroidism; E66.9 Obesity, unspecified; Z68.39 Body mass index [BMI] 39.0-39.9, adult ==

== ENCOUNTER → 2020-01-07 | Outpatient (CLI) | payer BC | END | disposition home or self-care (01) | LOC: LAB 18:42 | PROVIDERS: ATTEND Nurse Practitioner Adult Health | DX: E66.9 Obesity, unspecified (principal); K21.9 Gastro-esophageal reflux disease without esophagitis; Z68.39 Body mass index [BMI] 39.0-39.9, adult ==

== ENCOUNTER → 2020-02-28 | Outpatient (CLI) | payer BC | END | disposition home or self-care (01) | LOC: LAB 11:20 | PROVIDERS: ATTEND Physician Assistant Surgical | DX: E66.9 Obesity, unspecified (principal); Z68.39 Body mass index [BMI] 39.0-39.9, adult ==

== ENCOUNTER 2020-04-15 14:54 | Emergency (ER) | payer BC ==
[~2020-04-15] VITALS: Ht 157.4 cm; Wt 86.2 kg
[2020-04-15 15:52] LABS: BASO % 0.6 % (0.0-1.0); EOS # 0.1 10*3/uL (0.0-0.4); HEMATOCRIT 44.6 % (37.0-47.0); LYMPH # 1.8 10*3/uL (1.3-4.4); LYMPH % 28.3 % (27.0-41.0); MEAN CELL VOLUME 86.9 fl (81.0-99.0); MEAN CORPUSCULAR HGB 28.5 pg (27.0-31.0); MEAN CORPUSCULAR HGB CONC 32.7 g/dl (33.0-37.0); MEAN PLATELET VOLUME 12.9 fl (9.6-12.3); MONO # 0.6 10*3/uL (0.1-1.0); NEUT # 3.8 10*3/uL (2.3-7.9); NEUT % 60.8 % (47.0-73.0); PLATELET COUNT AUTOMATED 233 10*3/uL (130-400); RED BLOOD COUNT 5.13 10*6/uL (4.10-5.10); RED CELL DISTRI WIDTH 13.2 % (0-14.5); WHITE BLOOD COUNT 6.3 10*3/uL (4.8-10.8)
[2020-04-15 16:14] VITALS: BP 111/73
[2020-04-15 16:20] LABS: ALBUMIN 3.5 gm/dl (3.1-4.5); ALKALINE PHOSPHATASE 81 U/L (45-117); BUN 9 mg/dl (7-24); CHLORIDE 108 mmol/L (98-107); CREATININE 0.69 mg/dL (0.55-1.02); LIPASE 151 U/L (73-393); POTASSIUM 3.9 mmol/L (3.5-5.1); SGOT/AST 25 IU/L (3-35); SGPT/ALT 33 U/L (12-78); SODIUM 140 mmol/L (136-145); TOTAL PROTEIN 7.2 gm/dL (6.4-8.2)
[2020-04-15 16:23] LABS: BILIRUBIN 3+ (Negative); BLOOD Negative (Negative); CLARITY Cloudy (Clear); COLOR Dark Yellow (Yellow); GLUCOSE Negative (Negative); KETONE 3+ (Negative); LEUKO ESTERASE Trace (Negative); NITRITE Negative (Negative); SPECIFIC GRAVITY >= 1.030 (1.001-1.030)
[2020-04-15 16:29] LABS: THYROID STIM HORMONE (HS) 0.093 uIU/ml (0.358-4.75)
[2020-04-15 16:42] LABS: BACTERIA TRACE; CALCIUM OXALATE CRYSTALS 3+; MUCOUS 2+
[2020-04-15] MEDS ORDERED: ZOFRAN4 MG PO (17:59)
== END 2020-04-15 20:01 | disposition home or self-care (01) ==
LOC: ED 14:54
PROVIDERS: Nurse Practitioner Family
DX: E86.0 Dehydration (principal); R11.2 Nausea with vomiting, unspecified; J45.909 Unspecified asthma, uncomplicated; Z20.828 Contact with and (suspected) exposure to other viral communicable diseases; Z98.84 Bariatric surgery status; Z90.89 Acquired absence of other organs; Z85.850 Personal history of malignant neoplasm of thyroid; Z88.8 Allergy status to other drugs, medicaments and biological substances; Z88.0 Allergy status to penicillin; Z91.048 Other nonmedicinal substance allergy status; Z79.2 Long term (current) use of antibiotics; Z79.899 Other long term (current) drug therapy; Z90.49 Acquired absence of other specified parts of digestive tract; Z98.890 Other specified postprocedural states; Z90.710 Acquired absence of both cervix and uterus

== ENCOUNTER → 2020-05-01 | Outpatient (CLI) | payer BC | END | disposition home or self-care (01) | LOC: MAMMO 16:12 | PROVIDERS: ATTEND Internal Medicine | DX: Z12.31 Encounter for screening mammogram for malignant neoplasm of breast (principal); N64.89 Other specified disorders of breast ==

== ENCOUNTER → 2020-10-29 | Outpatient (CLI) | payer BC | END | disposition home or self-care (01) | LOC: US 09:00 | PROVIDERS: ATTEND Internal Medicine | DX: C73 Malignant neoplasm of thyroid gland (principal); E89.0 Postprocedural hypothyroidism ==

== ENCOUNTER → 2020-11-12 | Outpatient (CLI) | payer BC ==
[2020-11-12 10:16] LABS: BASO # 0.1 10*3/uL (0.0-0.1); BASO % 1.1 % (0.0-1.0); EOS # 0.1 10*3/uL (0.0-0.4); EOS % 1.5 % (1.0-4.0); HEMATOCRIT 40.5 % (37.0-47.0); LYMPH # 1.7 10*3/uL (1.3-4.4); LYMPH % 37.2 % (27.0-41.0); MEAN CELL VOLUME 88.6 fl (81.0-99.0); MEAN CORPUSCULAR HGB 29.8 pg (27.0-31.0); MEAN CORPUSCULAR HGB CONC 33.6 g/dl (33.0-37.0); MEAN PLATELET VOLUME 11.4 fl (9.6-12.3); MONO # 0.5 10*3/uL (0.1-1.0); NEUT # 2.3 10*3/uL (2.3-7.9); PLATELET COUNT AUTOMATED 290 10*3/uL (130-400); RED BLOOD COUNT 4.57 10*6/uL (4.10-5.10); RED CELL DISTRI WIDTH 12.4 % (0-14.5); WHITE BLOOD COUNT 4.6 10*3/uL (4.8-10.8)
[2020-11-12 10:35] LABS: BUN 8 mg/dl (7-24); CHLORIDE 111 mmol/L (98-107); CREATININE 0.68 mg/dL (0.55-1.02); POTASSIUM 3.6 mmol/L (3.5-5.1); SODIUM 140 mmol/L (136-145); TOTAL IRON BINDING CAPACITY 285 ug/dl (250-450)
[2020-11-12 10:38] LABS: IRON 107 ug/dL (50-170)
[2020-11-12 10:52] LABS: FERRITIN 116.2 ng/mL (10.0-291.0); VITAMIN D, 25-HYDROXY 76.7 ng/mL (30-100)
[2020-11-12 10:53] LABS: PTH INTACT 54.9 pg/mL (18.5-88.0)
== END | disposition home or self-care (01) ==
LOC: LAB 09:45
PROVIDERS: ATTEND Registered Nurse Home Health
DX: K21.9 Gastro-esophageal reflux disease without esophagitis (principal); R20.0 Anesthesia of skin; Z98.84 Bariatric surgery status; R20.2 Paresthesia of skin

== ENCOUNTER 2020-11-29 16:17 | Emergency (ER) | payer BC ==
[~2020-11-29] VITALS: Ht 157.4 cm; Wt 67.6 kg
[2020-11-29 17:02] LABS: HEMATOCRIT 43.2 % (37.0-47.0); MEAN CELL VOLUME 88.2 fl (81.0-99.0); MEAN CORPUSCULAR HGB 29.2 pg (27.0-31.0); MEAN CORPUSCULAR HGB CONC 33.1 g/dl (33.0-37.0); MEAN PLATELET VOLUME 12.2 fl (9.6-12.3); PLATELET COUNT AUTOMATED 246 10*3/uL (130-400); WHITE BLOOD COUNT 7.8 10*3/uL (4.8-10.8)
[2020-11-29 17:18] LABS: TOTAL CELLS COUNTED 100 #CELLS
[2020-11-29 17:19] LABS: PLATELET SUFFICIENCY NORMAL (NORMAL)
[2020-11-29 17:20] LABS: ALBUMIN 3.4 gm/dl (3.1-4.5); ALKALINE PHOSPHATASE 97 U/L (45-117); BUN 10 mg/dl (7-24); CHLORIDE 111 mmol/L (98-107); CREATININE 0.86 mg/dL (0.55-1.02); LIPASE 105 U/L (73-393); POTASSIUM 3.6 mmol/L (3.5-5.1); SGOT/AST 12 IU/L (3-35); SGPT/ALT 18 U/L (12-78); SODIUM 142 mmol/L (136-145); TOTAL PROTEIN 6.8 gm/dL (6.4-8.2)
[2020-11-29 17:23] LABS: TROPONIN I < 0.015 ng/ml (<0.045)
[2020-11-29 21:20] VITALS: BP 100/62
== END 2020-11-29 21:42 | disposition home or self-care (01) ==
LOC: ED 16:17
PROVIDERS: Physician Assistant
DX: K52.9 Noninfective gastroenteritis and colitis, unspecified (principal); Z90.49 Acquired absence of other specified parts of digestive tract; Z98.890 Other specified postprocedural states; Z90.710 Acquired absence of both cervix and uterus; Z79.899 Other long term (current) drug therapy; Z88.8 Allergy status to other drugs, medicaments and biological substances; Z88.5 Allergy status to narcotic agent; Z88.0 Allergy status to penicillin

== ENCOUNTER → 2020-12-11 | Outpatient (CLI) | payer BC ==
[2020-12-11 17:28] LABS: FREE T4 0.81 ng/dl (0.76-1.46)
[2020-12-11 17:32] LABS: THYROID STIM HORMONE (HS) 1.2 uIU/ml (0.358-4.75)
== END | disposition home or self-care (01) ==
LOC: LAB 16:36
PROVIDERS: ATTEND Internal Medicine
DX: Z13.6 Encounter for screening for cardiovascular disorders (principal); R76.8 Other specified abnormal immunological findings in serum; E03.9 Hypothyroidism, unspecified; K74.3 Primary biliary cirrhosis

== ENCOUNTER → 2020-12-17 | Outpatient (CLI) | payer BC ==
[2020-12-18 04:06] LABS: THYROID PEROXIDASE (TPO) AB <8 IU/mL (0-34)
[2020-12-18 15:07] LABS: THYROGLOBULIN ANTIBODY <1.0 IU/mL (0.0-0.9)
== END | disposition home or self-care (01) ==
LOC: LAB 09:10
PROVIDERS: ATTEND Internal Medicine
DX: C73 Malignant neoplasm of thyroid gland (principal); E04.1 Nontoxic single thyroid nodule

== ENCOUNTER → 2020-12-25 | Outpatient (CLI) | payer BC | END | disposition home or self-care (01) | LOC: LAB 08:53 → US 09:00 | PROVIDERS: Internal Medicine Endocrinology, Diabetes & Metabolism; ATTEND Surgery | DX: R92.2 Inconclusive mammogram (principal) ==

== ENCOUNTER → 2021-01-25 | Outpatient (CLI) | payer BC | END | disposition home or self-care (01) | LOC: US 01-15 07:30 | PROVIDERS: ATTEND Internal Medicine | DX: L98.9 Disorder of the skin and subcutaneous tissue, unspecified (principal) ==

== ENCOUNTER → 2021-02-28 | Day surgery (SDC) | payer BC ==
[~2021-02-28] VITALS: Ht 157.4 cm; Wt 63.5 kg
[~2021-02-28] MED LIST changes: +ADDERALL 20 MG20 MG PO; +ADDERALL 30 MG30 MG PO; +CALCIUM500 M1 PO; +DAILY VALUE1 EACH PO; +LINZESS145 MC1 PO; +ONE DAILY WOME1 EACH PO; +PERCOCET 5-3251 EACH PO; +VITAMIN B-1250 MCG PO; +VITAMIN C500 M4 PO
[2021-02-28 08:33] VITALS: BP 113/70
[2021-02-28 11:22] VITALS: BP 103/53
[2021-02-28 11:37] VITALS: BP 96/62
[2021-02-28 11:52] VITALS: BP 108/66
== END | disposition home or self-care (01) ==
LOC: SDC 02-25 10:15
PROVIDERS: ATTEND Surgery
DX: D17.1 Benign lipomatous neoplasm of skin and subcutaneous tissue of trunk (principal); J45.909 Unspecified asthma, uncomplicated; Z88.0 Allergy status to penicillin; Z88.5 Allergy status to narcotic agent; Z88.8 Allergy status to other drugs, medicaments and biological substances; Z20.822 Contact with and (suspected) exposure to COVID-19

== ENCOUNTER → 2021-07-01 | Outpatient (CLI) | payer BC | END | disposition home or self-care (01) | LOC: RAD 08:49 | PROVIDERS: ATTEND Internal Medicine | DX: M54.2 Cervicalgia (principal) ==

== ENCOUNTER → 2021-07-18 | Outpatient (CLI) | payer BC | END | disposition home or self-care (01) | LOC: MAMMO 11:24 | PROVIDERS: ATTEND Internal Medicine | DX: Z12.31 Encounter for screening mammogram for malignant neoplasm of breast (principal) ==

== ENCOUNTER → 2021-11-06 | Outpatient (CLI) | payer BC ==
[2021-11-06 11:25] LABS: BASO # 0.1 10*3/uL (0.0-0.1); BASO % 1.1 % (0.0-1.0); EOS # 0.1 10*3/uL (0.0-0.4); EOS % 2.1 % (1.0-4.0); LYMPH # 1.7 10*3/uL (1.3-4.4); LYMPH % 36.7 % (27.0-41.0); MEAN CELL VOLUME 87.8 fl (81.0-99.0); MEAN CORPUSCULAR HGB 28.8 pg (27.0-31.0); MEAN CORPUSCULAR HGB CONC 32.8 g/dl (33.0-37.0); MEAN PLATELET VOLUME 10.2 fl (9.6-12.3); MONO # 0.4 10*3/uL (0.1-1.0); MONO % 8.1 % (3.0-9.0); NEUT # 2.4 10*3/uL (2.3-7.9); NEUT % 51.8 % (47.0-73.0); PLATELET COUNT AUTOMATED 303 10*3/uL (130-400); RED CELL DISTRI WIDTH 12.6 % (0-14.5); WHITE BLOOD COUNT 4.7 10*3/uL (4.8-10.8)
[2021-11-06 11:40] LABS: IRON 117 ug/dL (50-170); TOTAL IRON BINDING CAPACITY 302 ug/dl (250-450)
[2021-11-06 11:42] LABS: ALKALINE PHOSPHATASE 96 U/L (45-117); BUN 10 mg/dl (7-24); CHLORIDE 111 mmol/L (98-107); CREATININE 0.74 mg/dL (0.55-1.02); SGOT/AST 13 IU/L (3-35); SGPT/ALT 22 U/L (12-78); SODIUM 142 mmol/L (136-145); TOTAL PROTEIN 6.9 gm/dL (6.4-8.2)
[2021-11-06 12:52] LABS: VITAMIN D, 25-HYDROXY 61.4 ng/mL (30-100)
[2021-11-06 12:53] LABS: FERRITIN 76.7 ng/mL (10.0-291.0)
== END | disposition home or self-care (01) ==
LOC: LAB 11:07
PROVIDERS: Internal Medicine; ATTEND Registered Nurse Home Health
DX: M26.622 Arthralgia of left temporomandibular joint (principal); Z98.84 Bariatric surgery status

== ENCOUNTER → 2022-01-24 | Outpatient (CLI) | payer BC | END | disposition home or self-care (01) | LOC: US 13:15 | PROVIDERS: ATTEND Internal Medicine | DX: C73 Malignant neoplasm of thyroid gland (principal); R59.0 Localized enlarged lymph nodes ==

== ENCOUNTER → 2022-02-14 | Outpatient (CLI) | payer BC | END | disposition home or self-care (01) | LOC: CT 02:04 | PROVIDERS: ATTEND Internal Medicine Nephrology | DX: R94.6 Abnormal results of thyroid function studies (principal); Z85.850 Personal history of malignant neoplasm of thyroid ==

== ENCOUNTER → 2022-03-05 | Outpatient (CLI) | payer BC ==
[2022-03-05 10:34] LABS: BASO # 0.1 10*3/uL (0.0-0.1); BASO % 1.1 % (0.0-1.0); EOS # 0.1 10*3/uL (0.0-0.4); EOS % 1.6 % (1.0-4.0); HEMATOCRIT 41.4 % (37.0-47.0); LYMPH % 43.9 % (27.0-41.0); MEAN CELL VOLUME 87.9 fl (81.0-99.0); MEAN CORPUSCULAR HGB 29.5 pg (27.0-31.0); MEAN CORPUSCULAR HGB CONC 33.6 g/dl (33.0-37.0); MEAN PLATELET VOLUME 10.5 fl (9.6-12.3); MONO # 0.3 10*3/uL (0.1-1.0); MONO % 6.7 % (3.0-9.0); NEUT # 2.1 10*3/uL (2.3-7.9); NEUT % 46.5 % (47.0-73.0); PLATELET COUNT AUTOMATED 310 10*3/uL (130-400); RED BLOOD COUNT 4.71 10*6/uL (4.10-5.10); RED CELL DISTRI WIDTH 12.7 % (0-14.5); WHITE BLOOD COUNT 4.5 10*3/uL (4.8-10.8)
[2022-03-05 10:50] LABS: FREE T4 1.07 ng/dl (0.76-1.46); TOTAL PROTEIN 7.1 gm/dL (6.4-8.2)
[2022-03-05 10:56] LABS: THYROID STIM HORMONE (HS) 0.216 uIU/ml (0.358-4.75)
[2022-03-06 14:07] LABS: ANTI-DSDNA ANTIBODIES <1 IU/mL (0-9)
== END | disposition home or self-care (01) ==
LOC: LAB 09:35
PROVIDERS: ATTEND Internal Medicine
DX: K74.3 Primary biliary cirrhosis (principal)

== ENCOUNTER → 2022-05-06 | Outpatient (CLI) | payer BC | END | disposition home or self-care (01) | LOC: LAB 14:59 | PROVIDERS: ATTEND Internal Medicine | DX: J02.9 Acute pharyngitis, unspecified (principal) ==

== ENCOUNTER → 2022-07-21 | Outpatient (CLI) | payer BC | END | disposition home or self-care (01) | LOC: MAMMO 06-30 08:00 | PROVIDERS: ATTEND Internal Medicine | DX: Z12.31 Encounter for screening mammogram for malignant neoplasm of breast (principal) ==

== ENCOUNTER → 2022-11-15 | Outpatient (CLI) | payer BC ==
[~2022-11-15] MED LIST changes: +FAMOTIDINE20 M1 PO; +MECLIZINE HCL25 M2 PO
== END | disposition home or self-care (01) ==
LOC: US 11-01 11:30
PROVIDERS: ATTEND Internal Medicine
DX: C73 Malignant neoplasm of thyroid gland (principal)

== ENCOUNTER → 2023-02-05 | Outpatient (CLI) | payer BC | END | disposition home or self-care (01) | LOC: US 01:31 | PROVIDERS: ATTEND Internal Medicine | DX: N28.9 Disorder of kidney and ureter, unspecified (principal); N32.9 Bladder disorder, unspecified ==

== ENCOUNTER → 2023-02-10 | Outpatient (CLI) | payer BC ==
[2023-02-10 12:20] LABS: FREE T4 0.99 ng/dl (0.89-1.76)
== END | disposition home or self-care (01) ==
LOC: LAB 11:14
PROVIDERS: ATTEND Internal Medicine
DX: E03.9 Hypothyroidism, unspecified (principal)

== ENCOUNTER → 2023-03-03 | Outpatient (CLI) | payer BC | END | disposition home or self-care (01) | LOC: CT 02:59 | PROVIDERS: ATTEND Internal Medicine | DX: N20.0 Calculus of kidney (principal); N28.9 Disorder of kidney and ureter, unspecified ==

== ENCOUNTER → 2023-05-18 | Outpatient (CLI) | payer BC | END | disposition home or self-care (01) | LOC: RAD 17:46 | PROVIDERS: ATTEND Internal Medicine Nephrology | DX: M25.522 Pain in left elbow (principal); Z91.81 History of falling ==

== ENCOUNTER → 2023-05-29 | Outpatient (CLI) | payer BC ==
[2023-05-29 16:42] LABS: FREE T4 1.29 ng/dl (0.89-1.76)
== END | disposition home or self-care (01) ==
LOC: LAB 16:00
PROVIDERS: ATTEND Internal Medicine
DX: E03.8 Other specified hypothyroidism (principal)

== ENCOUNTER → 2023-09-14 | Outpatient (CLI) | payer BC ==
[2023-09-14 09:54] LABS: EOS # 0.1 10*3/uL (0.0-0.4); EOS % 1.5 % (1.0-4.0); HEMATOCRIT 40.7 % (37.0-47.0); LYMPH # 1.9 10*3/uL (1.3-4.4); LYMPH % 47.9 % (27.0-41.0); MEAN CELL VOLUME 88.9 fl (81.0-99.0); MEAN CORPUSCULAR HGB 29.9 pg (27.0-31.0); MEAN CORPUSCULAR HGB CONC 33.7 g/dl (33.0-37.0); MEAN PLATELET VOLUME 10.4 fl (9.6-12.3); MONO # 0.4 10*3/uL (0.1-1.0); MONO % 9.7 % (3.0-9.0); NEUT # 1.6 10*3/uL (2.3-7.9); NEUT % 39.7 % (47.0-73.0); PLATELET COUNT AUTOMATED 292 10*3/uL (130-400); RED BLOOD COUNT 4.58 10*6/uL (4.10-5.10); RED CELL DISTRI WIDTH 12.9 % (0-14.5)
[2023-09-14 10:17] LABS: ALKALINE PHOSPHATASE 92 U/L (46-116); BUN 9 mg/dl (9-23); CHLORIDE 107 mmol/L (98-107); CHOLESTEROL 176 mg/dL (<200); FREE T4 1.51 ng/dl (0.89-1.76); LDL CHOLESTEROL 90 mg/dL (9-159); POTASSIUM 3.7 mmol/L (3.4-5.1); SGPT/ALT 10 U/L (5-49); TOTAL PROTEIN 6.8 gm/dL (6.0-8.0); TRIGLYCERIDES 149 mg/dl (<150)
== END | disposition home or self-care (01) ==
LOC: MAMMO 08:27 → LAB 08:27 → MAMMO 08:30
PROVIDERS: ATTEND Internal Medicine
DX: Z12.31 Encounter for screening mammogram for malignant neoplasm of breast (principal); E03.9 Hypothyroidism, unspecified; R42 Dizziness and giddiness; K76.0 Fatty (change of) liver, not elsewhere classified; E55.9 Vitamin D deficiency, unspecified

== ENCOUNTER → 2023-12-04 | Outpatient (CLI) | payer BC ==
[2023-12-04 09:34] LABS: BASO # 0.1 10*3/uL (0.0-0.1); BASO % 1.2 % (0.0-1.0); HEMATOCRIT 42.3 % (37.0-47.0); LYMPH # 1.8 10*3/uL (1.3-4.4); MEAN CELL VOLUME 87.6 fl (81.0-99.0); MEAN CORPUSCULAR HGB 29.6 pg (27.0-31.0); MEAN CORPUSCULAR HGB CONC 33.8 g/dl (33.0-37.0); MEAN PLATELET VOLUME 10.4 fl (9.6-12.3); MONO # 0.3 10*3/uL (0.1-1.0); MONO % 7.9 % (3.0-9.0); NEUT # 1.9 10*3/uL (2.3-7.9); NEUT % 45.7 % (47.0-73.0); PLATELET COUNT AUTOMATED 278 10*3/uL (130-400); RED BLOOD COUNT 4.83 10*6/uL (4.10-5.10); RED CELL DISTRI WIDTH 12.8 % (0-14.5); WHITE BLOOD COUNT 4.1 10*3/uL (4.8-10.8)
[2023-12-04 10:20] LABS: FREE T4 1.42 ng/dl (0.89-1.76)
[2023-12-05 15:07] LABS: ANTI-SMOOTH MUSCLE ANTIBODY 4 Units (0-19)
== END | disposition home or self-care (01) ==
LOC: US 08:30 → LAB 08:50
PROVIDERS: ATTEND Internal Medicine
DX: C73 Malignant neoplasm of thyroid gland (principal); M35.9 Systemic involvement of connective tissue, unspecified; E03.9 Hypothyroidism, unspecified

== ENCOUNTER → 2024-07-27 | Outpatient (CLI) | payer BC | END | disposition home or self-care (01) | LOC: LAB 12:47 | PROVIDERS: ATTEND Internal Medicine | DX: J02.9 Acute pharyngitis, unspecified (principal) ==